=== PATIENT | female | born 1975 | race African-American/Black ===

== ENCOUNTER 2021-10-29 08:55 | Inpatient (IN) | payer MEDICAID, OTHER ==
[~2021-10-29] VITALS: Ht 162.6 cm; Wt 65.8 kg
[2021-10-29 11:18] LABS: BASOPHILS % 0.4 % (0.0-2.0); EOSINOPHILS % 1.4 % (0.0-5.0); HEMATOCRIT. 43.8 % (36.0-48.0); LYMPHOCYTES % 30.5 % (20.0-50.0); MEAN CORPUSCULAR HEMOGLOBIN 27.9 pg (28.0-32.0); MEAN CORPUSCULAR VOLUME 86.9 fL (81.0-99.0); MEAN PLATELET VOLUME 8.7 fl (7.4-10.4); MONOCYTES % 6.6 % (2.0-8.0); NEUTROPHILS % 61.1 % (40.0-76.0); PLATELET 228 x1000/uL (130-400); RED BLOOD CELL COUNT 5.03 mill/uL (4.2-5.4); RED CELL DISTRIBUTION WIDTH 15.4 % (11.6-14.6)
[2021-10-29 11:29] LABS: CHLORIDE 106 mEq/L (98-107)
[2021-10-29 11:59] LABS: HCG SCREEN NEGATIVE
[2021-10-29 20:00] VITALS: BP 143/86
[2021-10-29] MEDS ORDERED: HYDROCODONE/ACETAMINOPHEN 5/325MG TABLET PO PRN (20:45)
[2021-10-29] MEDS ORDERED: NITROGLYCERIN 0.4MG TABLET SL SL PRN (20:45)
[2021-10-29] MEDS ORDERED: NALOXONE HCL 0.4MG/ML VIAL IV PRN (21:00)
[2021-10-29] MEDS ORDERED: IPRATROPIUM/ALBUTEROL 0.5-3(2.5)MG/3ML NEB HHN PRN (21:00)
[2021-10-29] MEDS: DIPHENHYDRAMINE 25MG CAPSULE PO PRN (22:47)
[2021-10-30] VITALS (7 sets, daily range): BP systolic 101–149; BP diastolic 68–93
[2021-10-30] MEDS ORDERED: ASPI-1497 MT (02:16)
[2021-10-30] MEDS ORDERED: SERT-422 PO (02:16)
[2021-10-30] MEDS ORDERED: ALBU90AE IH (02:16)
[2021-10-30] MEDS: ASPIRIN 81MG TABLET PO SCH (08:27)
[2021-10-30] MEDS: SERTRALINE HCL 50MG TABLET PO SCH (08:27)
[2021-10-30] MEDS: METOPROLOL SUCCINATE 50MG ER TABLET PO SCH (08:36)
[2021-10-30] MEDS ORDERED: METOPROLOL TARTRATE 5MG/5ML VIAL IV PRN (15:00)
[2021-10-30 18:12] LABS: *AMPHETAMINES SCREEN URINE NEGATIVE (NEGATIVE); *BARBITURATES SCREEN URINE NEGATIVE (NEGATIVE); *BENZODIAZEPINES SCREEN URINE NEGATIVE (NEGATIVE); *COCAINE SCREEN URINE NEGATIVE (NEGATIVE); METHADONE URINE SCREEN NEGATIVE (NEGATIVE); OPIATES URINE SCREEN NEGATIVE (NEGATIVE); PHENCYCLIDINE URINE SCREEN NEGATIVE (NEGATIVE)
[2021-10-30 18:14] LABS: CANNABINOID URINE SCREEN PRESUMTIVE POSITIVE (NEGATIVE)
[2021-10-31] VITALS: BP 134/74
[2021-10-31] MEDS ORDERED: NICOTINE 21MG PATCH TD NR (00:45)
[2021-10-31] MEDS ORDERED: NICOTINE 21MG PATCH TD SCH (01:00)
[2021-10-31] MEDS: NICOTINE 21MG PATCH TD SCH ×2 (01:08→10:26)
[2021-10-31 04:00] VITALS: BP 160/70
[2021-10-31] MEDS: ASPIRIN 81MG TABLET PO SCH (10:26)
[2021-10-31] MEDS: SERTRALINE HCL 50MG TABLET PO SCH (10:26)
[2021-10-31] MEDS: METOPROLOL SUCCINATE 50MG ER TABLET PO SCH (10:27)
[2021-10-31] MEDS ORDERED: ACETAMINOPHEN 325MG TABLET PO PRN (18:15)
[2021-10-31 20:00] VITALS: BP 137/90
[2021-10-31] MEDS: DIPHENHYDRAMINE 25MG CAPSULE PO PRN (20:07)
[2021-11-01 03:00] VITALS: BP 129/90
[2021-11-01] MEDS: DIPHENHYDRAMINE 25MG CAPSULE PO PRN (04:10)
[2021-11-01 08:00] VITALS: BP 139/81
[2021-11-01] MEDS: NICOTINE 21MG PATCH TD SCH (08:41)
[2021-11-01] MEDS: ASPIRIN 81MG TABLET PO SCH (08:41)
[2021-11-01] MEDS: SERTRALINE HCL 50MG TABLET PO SCH ×2 (08:41→08:48)
[2021-11-01] MEDS: METOPROLOL SUCCINATE 50MG ER TABLET PO SCH (08:42)
[2021-11-01 12:00] VITALS: BP 129/70
[2021-11-01] MEDS ORDERED: LACTULOSE 20G/30ML UDC PO NR (14:00)
[2021-11-01] MEDS: DOCUSATE SODIUM 100MG CAPSULE PO SCH (14:57)
[2021-11-01 16:00] VITALS: BP 126/83
[2021-11-01 20:00] VITALS: BP 135/80
[2021-11-02] VITALS: BP 133/81
[2021-11-02] MEDS: DIPHENHYDRAMINE 25MG CAPSULE PO PRN (00:32)
[2021-11-02 04:00] VITALS: BP 137/92
[2021-11-02] MEDS ORDERED: NITROGLYCERIN SPRAY/4.9GM CAN TL SCH (07:00)
[2021-11-02 08:00] VITALS: BP 123/86
[2021-11-02] MEDS: DOCUSATE SODIUM 100MG CAPSULE PO SCH (08:09)
[2021-11-02] MEDS: METOPROLOL SUCCINATE 50MG ER TABLET PO SCH (08:09)
[2021-11-02] MEDS: ASPIRIN 81MG TABLET PO SCH (08:09)
[2021-11-02] MEDS: NICOTINE 21MG PATCH TD SCH (08:09)
[2021-11-02] MEDS: SERTRALINE HCL 50MG TABLET PO SCH (08:09)
[2021-11-02] MEDS ORDERED: IOHEXOL-350 100 ML BOTTLE ONE (10:31)
[2021-11-02 12:00] VITALS: BP 128/75
[2021-11-02] MEDS ORDERED: NA PHOS,M-B/NA PHOS,DI-BA ENEMA 118ML PR NR (13:30)
[2021-11-02] MEDS ORDERED: FLUT1DIS3 INH (14:25)
[2021-11-02] MEDS ORDERED: ALBU18HF2 IH (14:25)
[2021-11-02 14:42] VITALS: BP 153/89
[2021-11-02] MEDS ORDERED: *PATIENT'S OWN MEDICATION STORAGE XX SCH (15:45)
== END 2021-11-02 15:49 | disposition home or self-care (01) | DRG 203 ==
LOC: ER 08:55 → EDBEDREQ 17:05 → EDBEDREQTM 17:05 → ENRESERV 17:32 → 8WST 19:12
PROVIDERS: ADMIT Internal Medicine; ATTEND Internal Medicine
DX: M94.0 Chondrocostal junction syndrome [Tietze] (principal); I27.20 Pulmonary hypertension, unspecified; E03.9 Hypothyroidism, unspecified; E78.5 Hyperlipidemia, unspecified; J45.909 Unspecified asthma, uncomplicated; I10 Essential (primary) hypertension; R03.0 Elevated blood-pressure reading, without diagnosis of hypertension; Z20.822 Contact with and (suspected) exposure to COVID-19; F17.210 Nicotine dependence, cigarettes, uncomplicated; F12.90 Cannabis use, unspecified, uncomplicated; Z98.891 History of uterine scar from previous surgery; Z91.040 Latex allergy status; Z88.8 Allergy status to other drugs, medicaments and biological substances
CPT/HCPCS: 36415; 71045; 75571; 80053; 80305; 83880; 84484; 84703; 85025; 87426; 93005; 93306; 99285; C9803; Q0163; Q9967

== ENCOUNTER 2023-03-09 16:15 | Emergency (ER) | payer OTHER ==
[~2023-03-09] VITALS: Ht 165.1 cm; Wt 62.0 kg
[~2023-03-09 16:15] MED LIST: ALBU18HF2 IH; ASPI-1497 MT; FLUT1DIS3 INH; SERT-422 PO
[2023-03-09 16:28] VITALS: BP 168/91; PULSE 69; RESP 20; TEMP 98.1
[2023-03-09 17:00] LABS: CLARITY URINE CLOUDY (CLEAR); COLOR URINE DARK YELLOW (YELLOW); GLUCOSE URINE NEGATIVE (NEGATIVE); KETONES URINE TRACE (NEGATIVE); LEUKOCYTE ESTERASE URINE 2+ (NEGATIVE); NITRITE URINE POSITIVE (NEGATIVE); OCCULT BLOOD URINE NEGATIVE (NEGATIVE); PH URINE 5.5 (4.5-8.0); PROTEIN URINE TRACE (NEGATIVE); SPECIFIC GRAVITY URINE 1.032 (1.005-1.030)
[2023-03-09 17:39] LABS: BACTERIA URINE 2+
[2023-03-09 17:40] LABS: RBC URINE 0-2 /hpf (0-2); SQUAMOUS EPITHELIAL CELL URINE 2+ /lpf (RARE/1+); WBC URINE 25-50 /hpf (0-2)
[2023-03-09] MEDS ORDERED: DOXYCYCLINE HYCLATE 100MG CAPSULE PO ONE (20:00)
[2023-03-09] MEDS ORDERED: CEFTRIAXONE SODIUM 500 MG/VIAL IM ONE (20:00)
[2023-03-09] MEDS ORDERED: DOXY-456 MT (20:11)
[2023-03-09] MEDS ORDERED: DOXYCYCLINE HYCLATE 100MG CAPSULE PO NR (21:45)
[2023-03-12 04:09] LABS: CHLAMYDIA TRACHOMATIS NAA Negative (Negative); NEISSERIA GONORRHOEAE NAA Positive (Negative)
== END 2023-03-09 21:26 | disposition home or self-care (01) ==
LOC: ER 16:15
DX: Z11.3 Encounter for screening for infections with a predominantly sexual mode of transmission (principal); J45.909 Unspecified asthma, uncomplicated; I10 Essential (primary) hypertension; E03.9 Hypothyroidism, unspecified; F12.90 Cannabis use, unspecified, uncomplicated; Z98.890 Other specified postprocedural states; Z91.040 Latex allergy status
CPT/HCPCS: 99283; 87491; 87591; 81003; 81025; 87086; 87186; 96372; J0696

== ENCOUNTER 2023-04-21 18:38 | Emergency (ER) | payer OTHER ==
[~2023-04-21] VITALS: Ht 162.6 cm; Wt 55.0 kg
[~2023-04-21 18:38] MED LIST changes: +DOXY-456 MT
[2023-04-21 18:47] VITALS: BP 143/95; PULSE 69; RESP 16; TEMP 98; O2SAT 99
[2023-04-21 23:49] LABS: BASOPHILS % 0.4 % (0.0-2.0); HEMATOCRIT. 36.8 % (36.0-48.0); HEMOGLOBIN. 12.1 g/dL (12.0-16.0); LYMPHOCYTES % 44.1 % (20.0-50.0); MEAN CORPUSCULAR HEMOGLOBIN 28.2 pg (28.0-32.0); MEAN CORPUSCULAR HGB CONC 32.9 g/dL (31.0-37.0); MEAN CORPUSCULAR VOLUME 85.5 fL (81.0-99.0); MEAN PLATELET VOLUME 7.9 fl (7.4-10.4); NEUTROPHILS % 44.5 % (40.0-76.0); PLATELET 292 x1000/uL (130-400); RED BLOOD CELL COUNT 4.31 mill/uL (4.2-5.4); RED CELL DISTRIBUTION WIDTH 14.8 % (11.6-14.6); WHITE BLOOD COUNT 7.9 x1000/uL (4.5-11.0)
[2023-04-21 23:59] LABS: ALANINE AMINOTRANSFERASE 12 IU/L (10-49); ALBUMIN 4.3 g/dL (3.2-4.8); ASPARTATE AMINOTRANSFERASE 20 IU/L (<34); BILIRUBIN TOTAL 0.3 mg/dL (0.1-1.0); CALCIUM 9.1 mg/dL (8.7-10.4); CARBON DIOXIDE 28 mEq/L (21-32); CHLORIDE 106 mEq/L (98-107); CREATININE 0.9 mg/dL (0.6-1.0); GLUCOSE 99 mg/dL (70-105); POTASSIUM 3.9 mEq/L (3.5-5.1); PROTEIN TOTAL 6.7 g/dL (6.0-8.3); SODIUM 139 mEq/L (136-145); UREA NITROGEN BLOOD 13 mg/dL (9-23)
[2023-04-22] LABS: TROPONIN I HIGH SENSITIVITY < 4 ng/L (3.0-34)
[2023-04-22] MEDS ORDERED: ALBU18HF2 IH (00:21)
[2023-04-22] MEDS ORDERED: FLUT1DIS3 INH (00:21)
== END 2023-04-21 22:26 | disposition home or self-care (01) ==
LOC: ER 18:38
DX: J06.9 Acute upper respiratory infection, unspecified (principal); I10 Essential (primary) hypertension; Z98.890 Other specified postprocedural states; F17.200 Nicotine dependence, unspecified, uncomplicated; F12.10 Cannabis abuse, uncomplicated; Z79.899 Other long term (current) drug therapy
CPT/HCPCS: 36415; 71045; 80053; 83880; 84484; 85025; 85379; 93005; 99285

== ENCOUNTER 2023-07-11 20:12 | Emergency (ER) | payer OTHER ==
[~2023-07-11] VITALS: Ht 162.6 cm; Wt 67.0 kg
[2023-07-11 20:21] VITALS: BP 186/98; PULSE 64; RESP 16; TEMP 98.4; O2SAT 100
[2023-07-12] MEDS ORDERED: ACET-2708 MT (04:03)
== END 2023-07-12 04:30 | disposition home or self-care (01) ==
LOC: ER 20:12
DX: S63.502A Unspecified sprain of left wrist, initial encounter (principal); S63.501A Unspecified sprain of right wrist, initial encounter; S93.402A Sprain of unspecified ligament of left ankle, initial encounter; S93.401A Sprain of unspecified ligament of right ankle, initial encounter; J45.909 Unspecified asthma, uncomplicated; I10 Essential (primary) hypertension; F12.10 Cannabis abuse, uncomplicated; W18.39XA Other fall on same level, initial encounter; Y93.89 Activity, other specified; Y92.89 Other specified places as the place of occurrence of the external cause; Y99.8 Other external cause status
CPT/HCPCS: 99284; 73110; 73610; Z7610